=== PATIENT | female | born 1975 | race Caucasian/White ===

== ENCOUNTER 2019-08-08 12:36 | Outpatient (CLI) | payer OTHER, SELFPAY ==
--- NOTE | 2019-08-08 12:40 | XR_ITS ---
WS: [id number] CHEST 2 VIEWS HISTORY: Chest pain COMPARISON: None available. Lungs: Clear with no abnormality. No pleural effusion or pneumothorax. Cardiac size: Normal. Mediastinum/Aorta: Normal mediastinum. Bones: Normal. XR/XR chest 2V* [id number] IMPRESSION: Normal chest.
== END 2019-08-08 12:37 | disposition home or self-care (01) ==
LOC: RAD 12:39
PROVIDERS: Family Provider Internal Medicine; PCP Internal Medicine; Visit Provider Internal Medicine
DX: R07.9 Chest pain, unspecified (principal)
CPT/HCPCS: 71046; 80053; 82803; 85025; 85378

== ENCOUNTER 2019-12-07 20:03 | Emergency (ER) | payer OTHER, SELFPAY ==
[2019-12-07 20:21] VITALS: BP 151/91; PULSE 95; RESP 16; O2SAT 98; BMI 26.5
--- NOTE | 2019-12-07 23:08 | CTR_ITS ---
PROCEDURE INFORMATION: Exam: CT Head Without Contrast Exam date and time: 12/07/2019 11:31 PM Age: 44 years old Clinical indication: Pain; Headache not specified; Additional info: VALERA TECHNIQUE: Imaging protocol: Computed tomography of the head without contrast. Radiation optimization: All CT scans at this facility use at least one of these dose optimization techniques: automated exposure control; mA and/or kV adjustment per patient size (includes targeted exams where dose is matched to clinical indication); or iterative reconstruction. COMPARISON: No relevant prior studies available. RADIATION DOSE METRICS: Total DLP: 850.57 mGy-cm FINDINGS: Brain: Normal. No hemorrhage. Unremarkable white matter. No mass effect. Ventricles: Normal. No ventriculomegaly. Bones/joints: Unremarkable. No acute fracture. Sinuses: Chronic right maxillary sinusitis. Mastoid air cells: Visualized mastoid air cells are well aerated. Soft tissues: Unremarkable. CT/CT head wo con* [id number] IMPRESSION: Nonacute. Radiation Dose CTDIVOL = (mGy): DLP = 850.57 (mGy-cm)
[2019-12-07 23:46] LABS: Basophils # 0.1 10^3/uL (0.0-0.1); Basophils % 0.8 %; Eosinophils # 0.1 10^3/uL (0.0-0.8); Eosinophils % 0.8 %; Hematocrit 36.7 % (37.0-47.0); Hemoglobin 11.2 g/dL (11.5-15.3); Lymphocytes # 2.1 10^3/uL (0.8-4.8); Lymphocytes % 31.7 %; Mean Corpuscular HGB Conc 30.5 g/dL (30.0-36.0); Mean Corpuscular Hemoglobin 27.3 pg (28.0-34.0); Mean Corpuscular Volume 89.5 fL (81-99); Mean Platelet Volume 10.7 fL (7.4-10.4); Monocytes # 0.5 10^3/uL (0.2-0.9); Monocytes % 8.1 %; Neutrophils # 3.9 10^3/uL (1.8-7.7); Neutrophils % 58.4 %; Nucleated Red Blood Cells % 0 %; Platelet Count 258 10^3/cmm (130-400); Red Cell Distribution Width 13.5 % (12.1-15.1); White Blood Count 6.7 10^3/uL (4.0-10.0)
[2019-12-08 00:07] LABS: HCG, Serum Qual Negative (Negative)
[2019-12-08 00:08] LABS: D Dimer <= 0.27 ug/mIFEU (0-0.59)
[2019-12-08] MEDS: sodium chloride 0.9% 500 ML IV (00:09)
[2019-12-08] MEDS: ketorolac 30 mg/mL INJ IVP (00:09)
[2019-12-08] MEDS: dexamethasone 4 mg/mL INJ IVP (00:10)
[2019-12-08 00:11] LABS: Alanine Aminotransferase 13 U/L (0-33); Albumin Level 4.6 g/dL (3.5-5.2); Alkaline Phosphatase 56 IU/L (35-105); Anion Gap 14.4 (5-19); Aspartate Amino Transferase 14 U/L (0-32); Blood Urea Nitrogen 11 mg/dL (6-20); Calcium 9.3 mg/dL (8.5-10.5); Carbon Dioxide 27 mmol/L (22-29); Chloride 101 mmol/L (98-107); Globulin 2.5 g/dL (1.3-4.6); Glomerular Filtration Rate 91.8 mL/min (90-130); Glucose 106 mg/dL (65-115); Magnesium 2.3 mg/dL (1.7-2.3); Osmolality Calculated 284 mOsm/kg (285-295); Potassium 3.4 mmol/L (3.5-5.1); Sodium 139 mmol/L (136-145); Total Bilirubin 0.2 mg/dL (0.15-1.2); Total Protein 7.1 g/dL (6.6-8.7)
[2019-12-08 00:12] VITALS: RESP 18; O2SAT 98
[2019-12-08] MEDS: fentaNYL 50 mcg/mL INJ 2mL IVP ×2 (00:12→01:53)
[2019-12-08] MEDS: valproic acid inj 500 MG in sodium chloride 0.9% 50 ML 555 MG IV (00:21)
[2019-12-08 00:22] LABS: Erythrocyte Sedimentation Rate 19 mm/hr (0-15)
[2019-12-08 00:43] VITALS: BP 117/71; PULSE 69; RESP 18; O2SAT 100
[2019-12-08 00:44] LABS: Add Urine Culture? Yes; Add Urine Microscopic? YES; Bacteria Urine 3+; Bilirubin Urine Neg (NEGATIVE); Blood Urine Neg (Negative); Glucose Urine UA Norm (Normal); Ketones Urine Negative (Negative); Leukocyte Esterase Urine Negative (Negative); Nitrate Urine Positive (Negative); Protein Urine Neg (Negative); Urine Appearance Cloudy (CLEAR); Urine Color Yellow (Yellow); Urobilinogen Urine Norm (Negative); pH Urine 6 (5-7)
[2019-12-08] MEDS: ondansetron 2 mg/ML SDV 2 mL 4 MG IVP (00:59)
[2019-12-08 01:26] LABS: C Reactive Protein 2.3 mg/L (0.0-4.9)
[2019-12-08] MEDS: cefTRIAXone 1,000 MG in sodium chloride 0.9% (plus) 50 ML 100 MG IV (01:53)
[2019-12-08 02:40] VITALS: BP 115/79; PULSE 74; RESP 18; O2SAT 100
[2019-12-08 02:45] VITALS: BP 120/77; PULSE 73; RESP 18; O2SAT 100
--- NOTE | 2019-12-08 17:05 | W.ED.HA ---
HPI - Headache General: Chief Complaint: Headache Stated Complaint: H/A; NAUSEA Time Seen by Provider: 12/07/19 23:01 History of Present Illness: HPI Narrative: 44-year-old healthy female with no prior history of headaches per se. She presents with a headache for the last 5 days. She says it waxes and wanes significantly. She says her head feels heavy . Headache is more towards the back of her head than the front. She is tried ibuprofen and Tylenol with some transient relief but no resolution. No fever, no neck or back stiffness, no cough or shortness of breath. She said she took some sinus medication without relief as well. MD elicited complaint: headache Onset (ago): day(s) Onset description: gradually Location: occipital Quality & Timing: aching and throbbing Exacerbating factors: movement of head/neck Relieving factors: NSAIDs Context: occurred at rest Associated symptoms: Deny chest pain, confusion, cough, eye pain, eye redness, fever(s), neck stiffness, rash, seizures, vomiting or weakness Treatments prior to arrival: acetaminophen and ibuprofen Review of Systems Const: Denies: fever(s) Eyes: Denies: change in vision or blurry vision ENMT: Denies: odynophagia, swelling of lips/tongue, bleeding gums, dental pain, change in hearing, epistaxis or post nasal drip Card: Denies: chest pain, palpitations, irregular heart rhythm, edema or dyspnea on exertion Resp: Denies: dyspnea, productive cough, non-productive cough or wheezing GI: Denies: vomiting : Denies: dysuria, urinary frequency, urinary urgency or hematuria Musc: Denies: neck pain, back pain, joint redness or joint warmth Skin/Breast: Denies: rash, pruritus or erythema Neuro: Denies: confusion Psych: Denies: anxiety PFSH ED PFSH: Social History (System 08/13/19 @ 09:54 by Sandra Ponce) Smoking and tobacco status: never smoked Physical Exam Const: COMMON NORMALS: patient oriented x3 GENERAL APPEARANCE: well developed ORIENTATION/CONSCIOUSNESS: Yes oriented to person, Yes oriented to place and Yes oriented to time HENMT: COMMON NORMALS: normocephalic, external ears normal and Normal external nose present HEAD & SCALP: normocephalic; no scalp tenderness FACE & SINUS: normal facial exam NOSE: Normal external nose present and No nasal discharge present EXTERNAL EAR: Yes external ears normal MOUTH: tongue normal TEETH & GINGIVA: no abnormal tooth and associated gingiva THROAT: posterior oropharynx normal; no peritonsillar mass Eye: COMMON NORMALS: Equal, round and reactive pupils present, EOMs intact bilaterally and conjunctivae normal EYELID: eyelids normal CONJUNCTIVA: Yes conjunctivae normal PUPIL: Yes Equal, round and reactive pupils present Neck/C-Spine: COMMON NORMALS: full ROM and no meningeal signs GENERAL: No tracheal deviation CERVICAL SPINE: Yes normal cervical lordosis and No Cervical spine tenderness Chest: COMMONS NORMALS: normal inspection of the chest CHEST: No tenderness Resp: COMMON NORMALS: clear to auscultation bilaterally EFFORT & INSPECTION: No tachypneic, No respiratory distress, No retractions, No uses accessory muscles and No tracheal deviation AUSCULTATION: clear to auscultation bilaterally, no rhonchi, no wheezes and lung sounds not diminished Cardio: COMMON NORMALS: regular rate and regular rhythm RATE: regular rate RHYTHM: regular rhythm HEART SOUNDS: no murmurs PERIPHERAL PULSES: radial pulses present GI: INSPECTION: No abdominal distension AUSCULTATION: No Hyperactive bowel sounds present and No Hypoactive bowel sounds present PALPATION: No Guarding due to palpation present (GI) and No Rigid due to palpation Neuro: COMMON NORMALS: patient oriented x3 SENSORIUM/ORIENTATION: Yes oriented to person, Yes oriented to place and Yes oriented to time MENINGEAL SIGNS: Yes no meningeal signs and No nuccal rigidity CRANIAL NERVES: Yes CN normal except as noted COORDINATION/BALANCE: [id number] test normal and Normal rapid alternating movements of the distal upper extremity present (Neuro) SPEECH: speech normal SENSORY EXAM: Yes extremities MOTOR EXAM: Pronator motor function not present and Normal motor muscle tone present throughout COORDINATION: [id number] test normal and rapid alternating movement UE normal Psych: COMMON NORMALS: mental status grossly normal Skin: COMMON NORMALS: no rashes or lesions noted GENERAL SKIN EXAM: no rashes or lesions noted Course Vital Signs: Vital signs: Vital Signs Pulse Rate 73 12/08/19 02:45 Respiratory Rate 18 12/08/19 02:45 Blood Pressure 120/77 12/08/19 02:45 Pulse Oximetry 100 12/08/19 02:45 MDM - Headache MDM Narrative: Medical decision making narrative: Headache improved significantly with migraine cocktail. CT is negative, save chronic appearing right-sided maxillary sinusitis. She does have a urinary tract infection as well. Other labs are unremarkable. She will be treated with antibiotics for the sinus infection and the UTI. She is to return for fever, stiffening of her neck, neurologic symptoms, other concerning symptoms. Lab Data: Labs: Lab Results 12/07/19 12/07/19 12/07/19 Range/Units 23:20 23:20 23:20 WBC 6.7 (4.0-10.0) 10^3/ uL RBC 4.10 (4.1-5.3) 10^6/u L Hgb 11.2 L (11.5-15.3) g/dL Hct 36.7 L (37.0-47.0) % MCV 89.5 (81-99) fL MCH 27.3 L (28.0-34.0) pg MCHC 30.5 (30.0-36.0) g/dL RDW 13.5 (12.1-15.1) % Plt Count 258 (130-400) 10^3/c mm MPV 10.7 H (7.4-10.4) fL Neut % (Auto) 58.4 % Lymph % (Auto) 31.7 % Towner % (Auto) 8.1 % Eos % (Auto) 0.8 % Baso % (Auto) 0.8 % Neut # (Auto) 3.9 (1.8-7.7) 10^3/u L Lymph # (Auto) 2.1 (0.8-4.8) 10^3/u L Towner # (Auto) 0.5 (0.2-0.9) 10^3/u L Eos # (Auto) 0.1 (0.0-0.8) 10^3/u L Baso # (Auto) 0.1 (0.0-0.1) 10^3/u L Nucleated RBC % (a uto) 0 % Nucleated RBCs # 0.0 /100WBC ESR 19 H (0-15) mm/hr D-Dimer <= 0.27 (0-0.59) ug/mIFE U Sodium (136-145) mmol/L Potassium (3.5-5.1) mmol/L Chloride (98-107) mmol/L Carbon Dioxide (22-29) mmol/L Anion Gap (5-19) BUN (6-20) mg/dL Creatinine (0.5-0.9) mg/dL GFR Calculation (90-130) mL/min Glucose (65-115) mg/dL Calculated Osmolal ity (285-295) mOsm/k g Calcium (8.5-10.5) mg/dL Magnesium (1.7-2.3) mg/dL Total Bilirubin (0.15-1.2) mg/dL AST (0-32) U/L ALT (0-33) U/L Alkaline Phosphata se (35-105) IU/L C-Reactive Protein (0.0-4.9) mg/L Total Protein (6.6-8.7) g/dL Albumin (3.5-5.2) g/dL Globulin (1.3-4.6) g/dL HCG, Qual (Negative) Urine Color (Yellow) Urine Appearance (CLEAR) Urine pH (5-7) Ur Specific Gravit y (1.005-1.030) Urine Protein (Negative) Urine Glucose (UA) (Normal) Urine Ketones (Negative) Urine Blood (Negative) Urine Nitrate (Negative) Urine Bilirubin (NEGATIVE) Urine Urobilinogen (Negative) mg/dL Ur Leukocyte Radha ase (Negative) Urine RBC (0-2) /hpf Urine WBC (0-5) /hpf Ur Squamous Epith Cells (0-5) Urine Bacteria (NONE) 12/07/19 12/07/19 12/08/19 Range/Units 23:20 23:20 00:25 WBC (4.0-10.0) 10^3/ uL RBC (4.1-5.3) 10^6/u L Hgb (11.5-15.3) g/dL Hct (37.0-47.0) % MCV (81-99) fL MCH (28.0-34.0) pg MCHC (30.0-36.0) g/dL RDW (12.1-15.1) % Plt Count (130-400) 10^3/c mm MPV (7.4-10.4) fL Neut % (Auto) % Lymph % (Auto) % Towner % (Auto) % Eos % (Auto) % Baso % (Auto) % Neut # (Auto) (1.8-7.7) 10^3/u L Lymph # (Auto) (0.8-4.8) 10^3/u L Towner # (Auto) (0.2-0.9) 10^3/u L Eos # (Auto) (0.0-0.8) 10^3/u L Baso # (Auto) (0.0-0.1) 10^3/u L Nucleated RBC % (a uto) % Nucleated RBCs # /100WBC ESR (0-15) mm/hr D-Dimer (0-0.59) ug/mIFE U Sodium 139 (136-145) mmol/L Potassium 3.4 L (3.5-5.1) mmol/L Chloride 101 (98-107) mmol/L Carbon Dioxide 27 (22-29) mmol/L Anion Gap 14.4 (5-19) BUN 11 (6-20) mg/dL Creatinine 0.7 (0.5-0.9) mg/dL GFR Calculation 91.8 (90-130) mL/min Glucose 106 (65-115) mg/dL Calculated Osmolal ity 284 L (285-295) mOsm/k g Calcium 9.3 (8.5-10.5) mg/dL Magnesium 2.3 (1.7-2.3) mg/dL Total Bilirubin 0.2 (0.15-1.2) mg/dL AST 14 (0-32) U/L ALT 13 (0-33) U/L Alkaline Phosphata se 56 (35-105) IU/L C-Reactive Protein 2.3 (0.0-4.9) mg/L Total Protein 7.1 (6.6-8.7) g/dL Albumin 4.6 (3.5-5.2) g/dL Globulin 2.5 (1.3-4.6) g/dL HCG, Qual Negative (Negative) Urine Color Yellow (Yellow) Urine Appearance Cloudy (CLEAR) Urine pH 6 (5-7) Ur Specific Gravit y 1.020 (1.005-1.030) Urine Protein Neg (Negative) Urine Glucose (UA) Norm (Normal) Urine Ketones Negative (Negative) Urine Blood Neg (Negative) Urine Nitrate Positive H (Negative) Urine Bilirubin Neg (NEGATIVE) Urine Urobilinogen Norm (Negative) mg/dL Ur Leukocyte Radha ase Negative (Negative) Urine RBC 5-10 H (0-2) /hpf Urine WBC 10-15 H (0-5) /hpf Ur Squamous Epith Cells 10-15 H (0-5) Urine Bacteria 3+ H (NONE) Discharge Plan Discharge Patient Disposition: Home, Self-Care Clinical Impression: Sinusitis Qualifiers: Sinusitis location: maxillary Chronicity: acute Recurrence: non-recurrent Qualified Code(s): J01.00 - Acute maxillary sinusitis, unspecified UTI (urinary tract infection) Qualifiers: Urinary tract infection type: acute cystitis Hematuria presence: without hematuria Qualified Code(s): N30.00 - Acute cystitis without hematuria Condition: Stable Prescriptions: New cefdinir 300 mg capsule 300 mg PO Q12H 10 Days Qty: 20 RF: 0 No Action phentermine [Adipex-P] 37.5 mg capsule 37.5 mg PO DAILY Qty: 30 RF: 0 Discharge Orders: Discharge Order (Routine); Ordered 12/08/19 Ordered By: Sixto Florence Referrals: Cortes Ryan MD [Primary Care Provider] - 4-7 days Discharge Diet: Advance as tolerated Discharge Activity: Resume usual activity Patient Instructions: Urinary Tract Infection in Women (ED), Sinusitis (ED) Activity Restrictions/Additional Instructions: Return for fever greater than 100 despite 2-3 doses of antibiotics, worsening headache despite treatment, mental status changes, weakness, other concerning symptoms. Be sure to follow-up with your doctor. 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
== END 2019-12-08 02:48 | disposition home or self-care (01) ==
PROVIDERS: Emergency Provider Emergency Medicine; Family Provider Internal Medicine; PCP Internal Medicine
DX: J01.00 Acute maxillary sinusitis, unspecified (principal); N30.00 Acute cystitis without hematuria
CPT/HCPCS: 12345; 70450; 80053; 81001; 83735; 84703; 85025; 85378; 85651; 86140; 87077; 87086; 87186; 96365; 96367; 96375; 96376; 99283; 99284; J0696; J1100; J1885; J2405; J3010; J7040

== ENCOUNTER 2020-01-02 13:41 | Outpatient (CLI) | payer OTHER, SELFPAY ==
--- NOTE | 2020-01-02 13:30 | MR_ITS ---
WS: [id number] MRI CERVICAL SPINE HISTORY: R51 Headache COMPARISON: None available. Straightening and reversal of the normal cervical lordosis centered at C5-6. Degenerative disc space narrowing is mild to moderate throughout. Most significant at C5-6. C4 pennie listhesis by 4.4 mm. Mild posterior tilting of the odontoid process. There is very slight narrowing o f the cervical medullary junction. No marrow edema or fracture. Craniocervical junction, C1 and C2 relationship, odontoid process and soft tissues are normal. C2-C3: Normal. C3-C4: Mild osteophytic ridging with mild RIGHT foraminal stenosis. C4-C5: Mild osteophytic ridging with a shallow central disc protrusion. Very slight narrowing of the foramen. C5-C6: Diffuse annular disc bulging with osteophytic ridging and shallow central disc protrusion. The re is near contact on the ventral cord due to disc osteophyte disease centrally. Mild central with mo derate RIGHT foraminal stenosis. C6-C7: Diffuse annular disc bulging and osteophytic ridging. Mild central and bilateral foraminal turdy nosis. Slightly more prominent disc osteophyte complex on the LEFT. C7-T1: Small LEFT paracentral disc protrusion or osteophyte without stenosis. Paraspinal soft tissue are normal. MR/MR cervical spin wo con* [id number] IMPRESSION: 1. Straightening of the normal cervical lordosis with reversal at C5-6. 2. C4 anterolisthesis by 4.4 mm. 3. Multilevel mild to moderate spondylitic changes. 4. Mild central and moderate RIGHT foraminal stenosis at C5-6. 5. Mild central and bilateral foraminal stenosis at C6-7.
--- NOTE | 2020-01-02 14:15 | MR_ITS ---
WS: [id number] MRI BRAIN WITH AND WITHOUT CONTRAST HISTORY: New Onset Headache with different characteristics. Nausea and vomiting. COMPARISON: CT head 12/07/2019 TECHNIQUE: Multiplanar imaging performed through the brain with Prohance 17 ml's IV. No acute infarcts are seen. Werner-white matter differentiation is well preserved. No susceptibility artifacts or prior lacunar infarcts. Ventricles and extra-axial spaces are normal. Clivus and pituitary gland are normal. Very mild narrowing of the cervical medullary junction due to posterior tilting of the odontoid proce ss. Postcontrast images are negative for masses or vascular malformations. Dural venous sinuses are normal. Paranasal sinuses: Mild mucoperiosteal thickening in the maxillary sinuses. No air-fluid levels. Mastoid air cells: Normal. Calvarium and scalp: Normal. MR/MR head wo/w con [id number] IMPRESSION: 1. No enhancing masses or signal abnormalities. 2. Very minimal narrowing of the cervical medullary junction due to posterior tilting of the odontoid.
== END 2020-01-02 13:42 | disposition home or self-care (01) ==
LOC: RADSHAW 13:44
PROVIDERS: PCP Internal Medicine; Visit Provider Specialist
DX: R51 Headache (principal); R11.2 Nausea with vomiting, unspecified; M48.02 Spinal stenosis, cervical region; M54.2 Cervicalgia; R29.898 Other symptoms and signs involving the musculoskeletal system; R25.1 Tremor, unspecified; R07.9 Chest pain, unspecified; Z13.29 Encounter for screening for other suspected endocrine disorder
CPT/HCPCS: 70553; 72141; 82607; 84436; 99204; A9579

== ENCOUNTER → 2020-01-03 08:44 | Outpatient (BNVA) | payer OTHER, SELFPAY | PROVIDERS: Family Provider Internal Medicine; PCP Internal Medicine; Visit Provider Specialist | DX: Z13.29 Encounter for screening for other suspected endocrine disorder (principal); G44.52 New daily persistent headache (NDPH); M54.2 Cervicalgia; R29.898 Other symptoms and signs involving the musculoskeletal system; R25.1 Tremor, unspecified; R07.9 Chest pain, unspecified | CPT/HCPCS: 84439; 84443 ==

== ENCOUNTER → 2020-06-03 09:00 | Outpatient (BNVA) | payer OTHER, SELFPAY | PROVIDERS: Family Provider Internal Medicine; PCP Internal Medicine; Visit Provider Nurse Practitioner Family | DX: R11.2 Nausea with vomiting, unspecified (principal) | CPT/HCPCS: 87426 ==

== ENCOUNTER → 2020-07-08 00:01 | Outpatient (BNVA) | payer OTHER, SELFPAY | PROVIDERS: Family Provider Internal Medicine; PCP Internal Medicine; Visit Provider Nurse Practitioner Family | DX: R50.9 Fever, unspecified (principal); J06.9 Acute upper respiratory infection, unspecified | CPT/HCPCS: 87426; 87635 ==

== ENCOUNTER → 2021-10-09 14:30 | Outpatient (BNVA) | payer OTHER, SELFPAY | PROVIDERS: Family Provider Internal Medicine; PCP Internal Medicine; Visit Provider Nurse Practitioner Family | DX: Z02.83 Encounter for blood-alcohol and blood-drug test (principal) | CPT/HCPCS: 80307 ==

== ENCOUNTER → 2024-01-02 09:49 | Outpatient (BNVA) | payer OTHER, SELFPAY | PROVIDERS: Family Provider Internal Medicine; PCP Internal Medicine; Visit Provider Nurse Practitioner Family | DX: R35.0 Frequency of micturition (principal); Z13.6 Encounter for screening for cardiovascular disorders; Z79.899 Other long term (current) drug therapy; E66.9 Obesity, unspecified; E66.09 Other obesity due to excess calories; Z68.30 Body mass index [BMI] 30.0-30.9, adult; R11.2 Nausea with vomiting, unspecified | CPT/HCPCS: 81003 ==